=== PATIENT | female | born 1940 | race Caucasian/White ===

== ENCOUNTER 2019-05-16 06:20 | Day surgery (SDC) | payer MEDICARE, OTHER ==
[~2019-05-16] VITALS: Ht 165.1 cm; Wt 69.4 kg
[~2019-05-16 06:20] MED LIST: CALCIUM 500 +1 EAC2 PO; METOPROLOL SUCC50 MG PO; SYNTHROID100 MCG PO
--- NOTE | 2019-05-16 07:33 | NUR ---
0720 pt to br returns to room warm blanket on iv patent.
--- NOTE | 2019-05-16 08:16 | NUR ---
05/16/19 0815 Kiarra Barakat 0810 PATIENT ARRIVES TO PACU AWAKE BUT DROWSY.DENIES PAIN OR NAUSEA. RESP EVEN AND UNLABORED.OXYGEN TURNED OFF ON ARRIVAL. ROOM AIR SATS >93%. TO BEDSIDE.
--- NOTE | 2019-05-16 21:38 | OR ---
[facility] [address] [place], [place] [address] Signed DATE OF OPERATION: 05/16/2019 SURGEON: Antonio Leon MD PREOPERATIVE DIAGNOSIS: Episodic rectal bleeding. POSTOPERATIVE DIAGNOSES: 1. Small polyp of cecum. 2. Diverticulosis. PROCEDURE: Total colonoscopy to cecum with cold morcellation polypectomy x1. ANESTHESIA: Intravenous sedation, fentanyl 100 mcg, Versed 3.5 mg. INDICATION: This 78-year-old white woman is a patient of Dr. Johnson, formally Dr. Madrid, and is here for consideration of surveillance colonoscopy. Her last colonoscopy was in 2004. She does have complaints of constipation and episodic rectal bleeding, which is relatively uncommon. She attributes this to hemorrhoids. She has no family history of colon cancer. Last colonoscopy was in 2004, which was normal. She is admitted at this time to undergo colonoscopy. She understands the risks of bleeding, infection, and perforation. FINDINGS: The prep was excellent. Complete colonoscopy was undertaken to the cecum without problem. There was a very small polyp of the cecum, which was excised with cold morcellation technique. Diverticular changes were noted of the sigmoid. Retroflexed view showed no anorectal abnormality. DESCRIPTION OF PROCEDURE: The patient was brought to the endoscopy suite and placed in lateral decubitus position, given intravenous sedation to the point of slurred speech and nystagmus. Digital rectal examination was normal. An Olympus video colonoscope was passed in the rectum and manipulated throughout the colon, ultimately intubating the cecum itself. The ileocecal valve and appendiceal orifice were normal. A small polyp was noted in the cecum. This was excised with cold Electronically Signed By: ANTONIO LEON MD 05/16/19 2138 PATIENT NAME: CODI MILLER OPERATIVE REPORT DATE OF : 40 REPORT #: [id number] PHYSICIAN: ANTONIO LEON MD PCP: RONALD JOHNSON MD REPORT IS CONFIDENTIAL AND NOT TO BE RELEASED WITHOUT AUTHORIZATION [facility] [address] [place] [id number] Signed morcellation technique completely. The scope was then withdrawn and examination throughout showed no sign of abnormality, other than scattered diverticula of the sigmoid and left colon. Retroflexed view was normal. The scope was removed and the patient was taken to recovery room in good condition. CONCLUDING DIAGNOSES: 1. Small polyp of cecum. 2. Diverticulosis. PLAN: We will check pathology report of the polyp excised. If adenoma is noted, repeat in 5-8 years, sooner if clinically appropriate or indicated. She will return to the ongoing care of Dr. Johnson. MD CARIN Conner/FLAVIAL /[id number] cc: Dr. Johnson Copies: ~ Electronically Signed By: ANTONIO LEON MD 05/16/19 2138 PATIENT NAME: CODI MILLER OPERATIVE REPORT DATE OF : 40 REPORT #: [id number] PHYSICIAN: ANTONIO LEON MD PCP: RONALD JOHNSON MD REPORT IS CONFIDENTIAL AND NOT TO BE RELEASED WITHOUT AUTHORIZATION
--- NOTE | 2019-05-19 14:38 | PATH ---
[facility] [address] [id number] Signed SPECIMEN(S): A CECUM POLYP SPECIMEN SOURCE: A. CECUM POLYP CLINICAL HISTORY: Constipation, hemorrhoids, rectal bleeding. Post: Diverticuli, polyp at cecum. MICROSCOPIC DESCRIPTION: Histologic sections of all submitted blocks are examined by light microscopy. These findings, together with the gross examination, support the pathologic diagnosis. FINAL PATHOLOGIC DIAGNOSIS: Mucosa, cecum, biopsy: - Tubular adenoma. LJA:cml:C2NR GROSS DESCRIPTION: The specimen, labeled "EG, cecum polyp," is received in formalin and consists of a single 0.2 cm, esparza-brown polypoid fragment. The specimen is entirely submitted in cassette (A1). AM (under the direct supervision of a pathologist) The Gross Description was prepared using a voice recognition system. The report was reviewed for accuracy; however, sound-alike word errors, addition and/or deletions may occur. If there is any question about this report, please contact Client Services. PERFORMING LABORATORY: The technical component was performed by [facility], [address] [place] [id number] (Title I Director: Melani Alcaraz MD; CLIA# [id number]). Professional interpretation was performed by [facility], [address] [address] (Title I Director: Louie Guardado MD; CLIA# [id number]). Diagnostician: Louie Guardado MD Pathologist Electronically Signed 05/19/2019 PATIENT NAME: CODI MILLER PATHOLOGY DATE OF : 40 REPORT #: [id number] PHYSICIAN: JUDY PATHOLOGY PCP: RONALD RODRÍGUEZ MD REPORT IS CONFIDENTIAL AND NOT TO BE RELEASED WITHOUT AUTHORIZATION [address] [address] Signed Copies: ~ PATIENT NAME: CODI MILLER PATHOLOGY DATE OF : 40 REPORT #: [id number] PHYSICIAN: JUDY PATHOLOGY PCP: RONALD RODRÍGUEZ MD REPORT IS CONFIDENTIAL AND NOT TO BE RELEASED WITHOUT AUTHORIZATION
== END 2019-05-16 08:45 | disposition home or self-care (01) ==
LOC: OPS 06:20 → DS 06:20 → OPS 06:45
PROVIDERS: Surgery
PROC: 0DBH8ZZ Excision of Cecum, Via Natural or Artificial Opening Endoscopic (ICD-10-PCS; principal; 2019-05-16 06:45)
DX: D12.0 Benign neoplasm of cecum (principal); K57.30 Diverticulosis of large intestine without perforation or abscess without bleeding; E03.9 Hypothyroidism, unspecified; K21.9 Gastro-esophageal reflux disease without esophagitis; K59.00 Constipation, unspecified; K21.0 Gastro-esophageal reflux disease with esophagitis
CPT/HCPCS: 99153; G0500; J2250; J3010; J7120

== ENCOUNTER 2021-12-20 03:35 | Emergency (ER) | payer MEDICARE, OTHER ==
[~2021-12-20] VITALS: Ht 165.1 cm; Wt 66.0 kg
[2021-12-20] MEDS ORDERED: PEPCID40 MG PO (03:57)
[2021-12-20] MEDS ORDERED: LIPITOR10 MG PO (03:57)
[2021-12-20] MEDS ORDERED: CYCLOBENZAPRINE5 MG PO (04:33)
--- NOTE | 2021-12-20 21:08 | EKG ---
[facility] [address] [facility] [place] [address] Signed Normal sinus rhythm Nonspecific ST abnormality Abnormal ECG No previous ECGs available Confirmed by ALAN HUTCHINS MD ([id number]) on 12/20/2021 9:08:23 PM Electronically Signed By: ALAN HUTCHINS MD 12/20/212107 PATIENT NAME: CODI MILLER Electrocardiogram DATE OF : 40 PHYSICIAN: ALAN HUTCHINS MD REPORT #: [id number] REPORT IS CONFIDENTIAL AND NOT TO BE RELEASED WITHOUT AUTHORIZATION
== END 2021-12-20 04:50 | disposition home or self-care (01) ==
LOC: ED 03:35
DX: R07.89 Other chest pain (principal); I10 Essential (primary) hypertension; E03.9 Hypothyroidism, unspecified; K21.9 Gastro-esophageal reflux disease without esophagitis; Z79.899 Other long term (current) drug therapy
CPT/HCPCS: 36415; 71045; 80053; 83735; 83880; 84484; 85025; 85610; 93005; 93010; 99285-25

== ENCOUNTER 2022-12-03 16:42 | Emergency (ER) | payer MEDICARE, OTHER ==
[~2022-12-03] VITALS: Ht 165.1 cm; Wt 66.0 kg
[~2022-12-03 16:42] MED LIST changes: +CYCLOBENZAPRINE5 MG PO; +LIPITOR10 MG PO; +PEPCID40 MG PO
[2022-12-03 17:59] VITALS: BP 164/81
== END 2022-12-03 17:57 | disposition home or self-care (01) ==
LOC: ED 16:42
DX: S00.83XA Contusion of other part of head, initial encounter (principal); I10 Essential (primary) hypertension; E03.9 Hypothyroidism, unspecified; K21.9 Gastro-esophageal reflux disease without esophagitis; Z79.899 Other long term (current) drug therapy; W22.8XXA Striking against or struck by other objects, initial encounter
CPT/HCPCS: 99283

== ENCOUNTER 2024-04-25 11:51 | Emergency (ER) | payer MEDICARE ==
[~2024-04-25] VITALS: Ht 165.1 cm; Wt 58.6 kg
[2024-04-25] MEDS ORDERED: FAMOTIDINE40 MG PO (12:24)
[2024-04-25] MEDS ORDERED: ATORVASTATIN CA40 MG PO (12:24)
[2024-04-25 12:26] LABS: BILIRUBIN, URINE NEGATIVE (negative); BLOOD/HGB, URINE TRACE-I (Negative); KETONE, URINE NEGATIVE (Negative); LEUK ESTERASE, URINE TRACE (negative); NITRITE, URINE NEGATIVE (negative)
[2024-04-25] MEDS ORDERED: VITAMIN B COMP1 EAC1 PO (12:26)
[2024-04-25] MEDS ORDERED: CHILDREN'S ASPI81 M1 PO (12:26)
[2024-04-25] MEDS ORDERED: SODIUM CHLORIDE 0.9% 500 ML IV ONE (12:30)
[2024-04-25 12:40] LABS: BASOPHILS 0.6 % (0-2); EOSINOPHILS 0.5 % (0-6); HEMATOCRIT 36.1 % (35.0-50.0); HEMOGLOBIN 12.6 g/dL (12.0-18.0); LYMPHOCYTES 21.9 % (24-44); MCH 31.7 (27-36); MCHC 34.9 g/dl (30-36); MCV 90.8 fl (81-99); MONOCYTES 7.1 % (0-12); NEUTROPHILS 69.9 % (39-80); PLATELET COUNT 231 K/uL (140-440); RBC 3.97 M/ul (4.3-5.7); RDW 14.4 (10.5-15.0)
[2024-04-25 12:42] LABS: BACTERIA, URINE RARE /hpf (negative); CASTS, URINE NONE SEEN \\lpf; COLLECTION TYPE, URINE CLEAN CATCH; CRYSTALS, URINE NONE SEEN (0-1+); EPITHELIAL CELLS, URINE SQUAMOUS 1+ /lpf (0-1+); RED BLOOD CELLS, URINE 0-1 /hpf (0-5); REFLEX CULTURE, URINE No (No)
[2024-04-25 13:05] LABS: ALBUMIN 3.8 g/dL (3.4-5.0); ALBUMIN/GLOBULIN RATIO 1.23 (1.1-2.4); ALCOHOL, MEDICAL <3 ng/dL (<3); ALKALINE PHOSPHATASE 60 U/L (46-116); ALT (SGPT) 33 U/L (14-59); ANION GAP 14.8 (7-21); AST (SGOT) 14 U/L (15-37); BILIRUBIN, TOTAL 1.9 ng/dL (0.2-1.0); BUN/CREATININE RATIO 17.47 (6.0-28.6); CALCIUM 8.8 mg/dL (8.5-10.1); CARBON DIOXIDE 26 mmol/L (21-32); CHLORIDE 102 mmol/L (98-107); CREATININE, SERUM 1.03 mg/dL (0.55-1.02); GLOMERULAR FILTRATION RATE,EST 54 mL/min (>60); MAGNESIUM 1.9 mg/dL (1.8-2.4); POTASSIUM 3.8 mmol/L (3.5-5.1); PROTEIN, TOTAL 6.9 g/dL (6.4-8.2); UREA NITROGEN 18 mg/dL (7-18)
[2024-04-25 14:39] VITALS: BP 149/72
--- NOTE | 2024-04-27 18:30 | EKG ---
[facility] [address] [facility] [place] [address] Signed Normal sinus rhythm Normal ECG When compared with ECG of 20-DEC-2021 03:45, No significant change was found Confirmed by Migue Lilly MD ([id number]) on 04/27/2024 6:30:08 PM Electronically Signed By: MIGUE LILLY MD 04/27/241829 PATIENT NAME: CODI MILLER Electrocardiogram DATE OF : 40 PHYSICIAN: MIGUE LILLY MD REPORT #: [id number] REPORT IS CONFIDENTIAL AND NOT TO BE RELEASED WITHOUT AUTHORIZATION
== END 2024-04-25 14:42 | disposition home or self-care (01) ==
LOC: ED 11:51
PROVIDERS: Emergency Medicine
DX: R42 Dizziness and giddiness (principal); I10 Essential (primary) hypertension; E03.9 Hypothyroidism, unspecified; Z79.82 Long term (current) use of aspirin; Z79.890 Hormone replacement therapy; Z79.899 Other long term (current) drug therapy
CPT/HCPCS: 36415; 70450; 71045; 80053; 81001; 83735; 84484; 85025; 93005; 93010; 96360; 99284-25; G0480; J7040